=== PATIENT | female | born 1945 | race Caucasian/White ===

== ENCOUNTER 2016-12-31 09:29 | Day surgery (SDC) | payer OTHER ==
[2016-12-31] MEDS ORDERED: Lactated Ringer's 500 ML IV ONE (09:51)
[2016-12-31] MEDS ORDERED: Sodium Chloride 0.9% 250 ML IV ONE (09:51)
[2016-12-31] MEDS ORDERED: Midazolam 2 MG/2 ML VIAL ONE (11:21)
[2016-12-31] MEDS ORDERED: Propofol 10 mg/ml Inj (20 ML) ONE (11:21)
[2016-12-31 11:53] VITALS: TEMP 96.7
[2016-12-31 12:26] VITALS: BP 135/60; PULSE 55; RESP 20; O2SAT 100
== END 2016-12-31 12:48 | disposition home or self-care (01) ==
LOC: H.ENDO 09:29
PROVIDERS: ATTEND Internal Medicine Gastroenterology
DX: Z86.010 Personal history of colon polyps (principal); K57.30 Diverticulosis of large intestine without perforation or abscess without bleeding
CPT/HCPCS: G0105; J2001; J2250; J2704; J3010; J7040